=== PATIENT | female | born 1985 | race African-American/Black ===

== ENCOUNTER 2016-09-09 17:09 | Inpatient (IN) ==
[2016-09-09] MEDS ORDERED: ZOFRAN IV PRN (17:30)
[2016-09-09] MEDS ORDERED: REGLAN IV PRN (17:42)
[2016-09-09 21:27] LABS: MPV 9.9 FL (7.4-10.4)
[2016-09-09] MEDS ORDERED: NS 250 ML ONE (23:20)
[2016-09-09] MEDS: TYLENOL PO PRN (23:46)
[2016-09-10 02:15] LABS: MPV 10.5 FL (7.4-10.4)
[2016-09-10] MEDS: KEFZOL 1 GM/D5W 1 GM/50 ML IVPB IV SCH ×3 (02:31→16:04)
[2016-09-10 04:25] LABS: BASO% 0.2 % (0.0-0.8); EOS# 0.07 X1000 (0.0-0.7); EOS% 0.8 % (0.0-10.0); HEMATOCRIT 27.5 % (37.0-47.0); HEMOGLOBIN 9.3 g/dL (12.0-16.0); IMM GRAN# 0.02 X1000 (0.0-0.04); IMM GRAN% 0.2 % (0.0-0.5); LYMPH# 1.93 X1000 (1.2-3.4); LYMPH% 21.3 % (20.5-51.1); MANUAL DIFF NEEDED? YES; MCH 27.9 PG (27-31); MCHC 33.8 g/dL (33-37); MCV 82.6 FL (81-99); MONO# 0.51 X1000 (0.11-0.59); MONO% 5.6 % (1.7-9.3); NEUT% 71.9 % (42.2-75.2); RBC 3.33 XMIL (4.2-5.4)
[2016-09-10 04:27] LABS: PLT 30 X1000 (130-400)
[2016-09-10] MEDS ORDERED: D50W SYRINGE IV ONE (04:29)
[2016-09-10 05:11] LABS: EOS 4 % (1-10); LYMPHS 20 % (21-51); MONO 4 % (1-9)
[2016-09-10 05:33] LABS: LARGE PLATELETS OCCASIONAL
[2016-09-10 05:59] LABS: INR 1.06 (0.86-1.15); PROTIME 14.1 Seconds (12.1-15.5)
[2016-09-10 06:00] LABS: PTT PL 34.6 Seconds (22.6-43.9)
[2016-09-10 06:17] LABS: DIRECT BILIRUBIN 0.5 mg/dL (0.00-0.20); TOTAL BILIRUBIN 1.2 mg/dL (0.20-1.00)
[2016-09-10] MEDS: NS 1,000 ML IV SCH ×2 (06:31→16:04)
[2016-09-10 07:24] LABS: MPV 9.4 FL (7.4-10.4)
[2016-09-10] MEDS: FLINTSTONES COMPLETE PO SCH (09:27)
[2016-09-10] MEDS ORDERED: GAVISCON PO PRN (12:12)
--- NOTE | 2016-09-10 12:48 | PROGRESS NOTE ---
DATE: 09/10/2016 SUBJECTIVE: The patient reports feeling better today. She has been no abdominal pain now, and no nausea or vomiting this morning. She is tolerating a clear liquid diet. OBJECTIVE: Vital Signs: She is afebrile. Her vital signs were stable. She is noted to have systolic blood pressure as high as 149, but most recently 135/78. General: She is alert oriented x4. In no acute distress. Cardiovascular: Regular rate and rhythm. Respiratory: No work of breathing. Gastrointestinal: Soft. She is nontender in the right upper quadrant. LABORATORY: White blood cell count 9000, hemoglobin 9.3, hematocrit 27.5. Platelet count yesterday was as low was 24,000. After 2 units, it is up to 36,000. INR 1.1. PTT 34.6. Fibrinogen 402. Uric acid 4.8. Total bilirubin 1.2. Direct bilirubin 0.5. ASSESSMENT AND PLAN: This is a 30-year-old female with 18 weeks gestation who presented yesterday with right upper quadrant pain and tenderness, nausea, vomiting, mildly elevated liver function tests, and an ultrasound showing sludge in the gallbladder and a large gallstone near the gallbladder neck. She had a positive sonographic Farris sign. Subsequently, she was found to be thrombocytopenic and was admitted for further workup and treatment. She is on scheduled IV Ancef have for cholecystitis. A hematology workup has been started by me and I have talked to Dr. Olga Izquierdo for further assistance. In discussion with Dr. Dela Cruz, hemolysis, elevated liver enzyme levels, and low platelet levels syndrome or preeclampsia would seem to be out of the question, given the stage of her . At this point, she does not appear to have severe cholecystitis requiring emergent intervention. We will continue the antibiotics for now, until further clarity is determined on the thrombocytopenia. Dr. Redding will cover in my absence over the weekend. cc: Harish Cooper MD
[2016-09-10] MEDS ORDERED: IVIG DOSING ORDER MISC SCH (15:30)
[2016-09-10 15:43] LABS: CHLORIDE 101 mmol/L (98-107); POTASSIUM 3.8 mmol/L (3.5-5.1); SODIUM 136 mmol/L (136-145); TCO2 21 mmol/L (25-35)
[2016-09-10 15:44] LABS: AGAP 14; ALBUMIN 3.5 g/dL (3.5-5.0); ALKALINE PHOSPHATASE 164 U/L (32-104); BUN 5 mg/dL (8-22); COSMO 269; GOT 54 U/L (10-30); GPT 73 U/L (10-36); TOTAL PROTEIN 7.3 g/dL (6.3-8.3)
--- NOTE | 2016-09-10 16:04 | CONSULTATION ---
DATE OF CONSULTATION: 09/10/2016 REQUESTING PHYSICIAN: Dr. Harish Cooper. REASON FOR CONSULTATION: Thrombocytopenia. HISTORY OF PRESENT ILLNESS: Ms. Milan is a 30-year-old, woman who is 18 weeks with her 3rd child who was noted recently to have right upper quadrant abdominal pain thought to be related to her gallbladder and was scheduled for elective cholecystectomy on the date of admission. Preop lab showed a severe thrombocytopenia with a platelet count of 26,000 and she was admitted for further workup. She denies any antecedent fevers, chills, signs of infection, bleeding, easy bruising, diarrhea, or changes in the color of her eyes, skin or urine. She had 2 previous uneventful and has never been told that her platelets were low. She had a bit of a nosebleed this morning that has now stopped and was mild per her report. PAST MEDICAL HISTORY: Significant for diabetes, hypothyroidism. ALLERGIES: Phenergan. PAST SURGICAL HISTORY: x2. FAMILY MEDICAL HISTORY: Positive for hypertension in mom. MEDICATIONS: Reviewed per chart. Notable for metformin, Zofran and Synthroid. SOCIAL HISTORY: The patient has a significant other and an 8-year-old and a 4-year-old at home that she lives with. A history of tobacco use. No significant alcohol use. REVIEW OF SYSTEMS: Pertinent positives and negatives as per HPI. All other review of systems are negative. PHYSICAL EXAMINATION: General: This is a well-developed, well-nourished, woman lying in the hospital bed in no acute distress. Her significant other is at the bedside. Vital Signs: Temperature 98.2 degrees, pulse 74, respiratory rate 18, blood pressure 116/68, O2 saturation 100% on room air. Eyes: Sclerae anicteric. Cardiovascular: Regular rate and rhythm. Normal S1, S2. No murmurs, rubs, or gallops. Pulmonary: Lungs are clear auscultation bilaterally without wheezes, rales, or rhonchi. Gastrointestinal: Abdomen is soft, nontender, nondistended with normoactive bowel sounds. Extremities: No clubbing, cyanosis. Trace bilateral ankle edema. Neurologic: Alert and oriented x3. No focal deficits. LABORATORY DATA: On admission, platelet count 24,000, with MCV of 9.9. After transfusion platelet count 36,000, white count 9, hemoglobin 9.3. INR 1.06. Fibrinogen 402. PTT 34.6. Uric acid 4.8, total bilirubin 1.2, direct bilirubin 0.5. Abdominal ultrasound: Cholelithiasis. ASSESSMENT AND PLAN: 1. Thrombocytopenia. I suspect that she has ITP. I am awaiting her LDH. Her peripheral smear shows no schistocytes and a few large platelets. I will check a full liver function panel as well as her LDH. If those are within normal limits then I will treat her with IVIG for presumptive ITP. I have discussed her case with Dr. Cooper and Dr. Jhaveri. The patient understands and agrees to proceed. I would recommend no further transfusion unless active bleeding is present. 2. Anemia. I will check iron studies, B12 and folic acid, at this time. No evidence of active hemolysis. No evidence of TTP. 3. Cholelithiasis: We will defer cholecystectomy until her platelet count has improved to safe range. 4. Followup: I would anticipate that the IVIG will lead to an increased platelet count in the next 2-3 days. I will see her back in the office next week to review her platelet count and determine further course of therapy. Thank you for this consultation and the opportunity to participate in the care of this very pleasant patient. I will follow along with you and make further recommendations as indicated. cc: MD Harish Gtz MD
--- NOTE | 2016-09-10 17:45 | CONSULTATION ---
DATE OF CONSULTATION: 09/10/2016 REASON FOR CONSULTATION: Thrombocytopenia in , cholelithiasis. HISTORY OF PRESENT ILLNESS: This is a 30-year-old G5, P2-0-2-2 with intrauterine at 18+ 0 weeks, EDC 02/11/2017 who presents for inpatient management of thrombocytopenia. The patient was being worked up for the cholecystectomy after noticing 2-week history of right upper quadrant pain and preoperative blood work showed platelet count around 27,000 and patient was admitted yesterday for management. The patient notes no abnormal bleeding. She notes no bleeding gowns while brushing her teeth, no epistaxis. Patient notes no nausea or vomiting, chest pain, shortness of breath, change in bowel or bladder habits. Patient denies headaches, vision changes. OBSTETRICAL HISTORY: G1 full-term section complicated by gestational diabetes. G2 first trimester spontaneous . G3 full-term section. G4 22 week demise. G5 current complicated by type 2 diabetes as well as new found thrombocytopenia and cholelithiasis. HOSPITAL MEDICAL ASSISTANT HISTORY: Denies. PAST MEDICAL HISTORY: Significant for hypothyroidism and type 2 diabetes. PAST SURGICAL HISTORY: Significant for section x2. MEDICATIONS: Metformin 500 mg p.o. b.i.d., Synthroid 50 mcg daily. ALLERGIES: Phenergan. SOCIAL: Patient smokes 6-7 cigarettes per day. Denies alcohol or illicit drug use. REVIEW OF SYSTEMS: Otherwise negative. PHYSICAL EXAMINATION: General: Well-developed, well-nourished female, no acute distress. HEENT: Pupils equally round, react to light. Extraocular muscle intact. Chest: Clear to auscultation bilaterally. CV: Regular rate and rhythm. No murmurs, rubs or gallops. Abdomen: Soft, slight tenderness to palpation right upper quadrant. No rebound or guarding. Extremities: No clubbing, cyanosis, or edema. Skin: No focal lesions. Neuro: No focal deficits, +2 DTRs. ASSESSMENT AND PLAN.: 1. Intrauterine 18 + 0 weeks. 2. Cholelithiasis. 3. Thrombocytopenia (suspect immune thrombocytopenia). 4. Type 2 diabetes. PLAN: Although LDH and LFTs are elevated I do not suspect HELLP syndrome given gestational age as well as a lack of preeclampsia sequelae. Wound recommend IVIG as initial therapy in anticipation of surgery with a goal platelet count of at least 50 prior to operating. If for some reason surgery is canceled can expectantly manage with close outpatient follow up until platelets fall below 10. cc: MD Harish Kwong MD
[2016-09-10] MEDS: FLEBOGAMMA DIF 5% IV SCH (18:05)
[2016-09-10] MEDS: SYNTHROID PO SCH (20:43)
[2016-09-10] MEDS: TYLENOL PO PRN (20:51)
[2016-09-11] MEDS: TYLENOL PO PRN ×2 (03:21→13:29)
[2016-09-11] MEDS: KEFZOL 1 GM/D5W 1 GM/50 ML IVPB IV SCH ×4 (04:44→21:44)
[2016-09-11 06:08] LABS: MANUAL DIFF NEEDED? NO
[2016-09-11 07:42] LABS: BASO% 0.3 % (0.0-0.8); EOS# 0.13 X1000 (0.0-0.7); EOS% 1.6 % (0.0-10.0); HEMATOCRIT 25.7 % (37.0-47.0); HEMOGLOBIN 8.6 g/dL (12.0-16.0); IMM GRAN# 0.07 X1000 (0.0-0.04); IMM GRAN% 0.9 % (0.0-0.5); LYMPH# 1.52 X1000 (1.2-3.4); LYMPH% 19.1 % (20.5-51.1); MCH 27.8 PG (27-31); MCHC 33.5 g/dL (33-37); MCV 83.2 FL (81-99); MONO# 0.85 X1000 (0.11-0.59); MONO% 10.7 % (1.7-9.3); NEUT% 67.4 % (42.2-75.2); RBC 3.09 XMIL (4.2-5.4)
[2016-09-11 07:43] LABS: PLT 27 X1000 (130-400)
[2016-09-11 08:15] LABS: UR CREATININE 56.3 mg/dL (11-20); UR CREATININE TOTAL 2843.2 mg/24 (600-1600); UR PROTEIN 35.2 mg/dL
[2016-09-11] MEDS: FLINTSTONES COMPLETE PO SCH (08:20)
[2016-09-11 08:51] LABS: FERRITIN 1400 ng/mL (13-150)
--- NOTE | 2016-09-11 12:23 | PROGRESS NOTE ---
DATE: 09/11/2016 SUBJECTIVE: Feels okay. Occasional abdominal pain. She has got IVIG but her platelets are down to 27,000 this morning. White count 7, hematocrit is 25. Total bilirubin was 1 yesterday with. She has been followed by Dr. Izquierdo and Dr. Jhaveri with [employer]. Feels this is not -related but most likely ITP and Dr. Izquierdo is managing the therapy for this. We will continue to monitor and when her platelets improve we will plan for possible cholecystectomy at that time. PHYSICAL EXAM: Vital signs: Temperature is 98.2 degrees, pulse 67, blood pressure 127/77, oxygen saturation 100%. General: She is alert, no acute distress. Abdomen: Soft, nontender, nondistended. No scleral icterus. No jaundice. Cardiovascular: Normal rate, regular rhythm. Pulmonary: No increased work of breathing. We will continue to monitor for now and follow her platelets. Dr. Cooper plans for possible cholecystectomy this week as she clinically improves. cc: MD Harish Conner MD
[2016-09-11] MEDS: NS 1,000 ML IV SCH (12:52)
[2016-09-11] MEDS: FLEBOGAMMA DIF 5% IV SCH (17:53)
[2016-09-11] MEDS: SYNTHROID PO SCH (20:31)
[2016-09-12] MEDS: KEFZOL 1 GM/D5W 1 GM/50 ML IVPB IV SCH ×3 (04:07→21:21)
[2016-09-12 06:29] LABS: BASO% 0.4 % (0.0-0.8); EOS# 0.08 X1000 (0.0-0.7); HEMATOCRIT 24.6 % (37.0-47.0); HEMOGLOBIN 8.4 g/dL (12.0-16.0); IMM GRAN# 0.05 X1000 (0.0-0.04); IMM GRAN% 0.6 % (0.0-0.5); LYMPH# 1.69 X1000 (1.2-3.4); LYMPH% 20.8 % (20.5-51.1); MANUAL DIFF NEEDED? YES; MCH 28.5 PG (27-31); MCHC 34.1 g/dL (33-37); MCV 83.4 FL (81-99); MONO# 0.93 X1000 (0.11-0.59); MONO% 11.5 % (1.7-9.3); NEUT% 65.7 % (42.2-75.2); RBC 2.95 XMIL (4.2-5.4)
[2016-09-12 06:31] LABS: LYMPHS 22 % (21-51); MONO 8 % (1-9); PLT 15 X1000 (130-400)
[2016-09-12] MEDS: NS 1,000 ML IV SCH ×3 (07:08→18:37)
[2016-09-12] MEDS: FLINTSTONES COMPLETE PO SCH (09:19)
[2016-09-12] MEDS ORDERED: DECADRON PO ONE (16:05)
--- NOTE | 2016-09-12 16:19 | PROGRESS NOTE ---
DATE: 09/12/2016 SUBJECTIVE: No real abdominal pain. No nausea. She is tolerating a diet. Normal bowel function. She does have some bruising, but no bleeding, no epistaxis. OBJECTIVE: Vital signs: No fevers. Pulse is 54, blood pressure 155/91, oxygen saturation 100% on room air. General: She is alert, there is no scleral icterus. Cardiovascular: Normal rate, regular rhythm. She is , but I do not see any bruising other than at the previous IV site. Abdomen: Soft, nontender, nondistended. LABORATORY: I reviewed her labs. She remains anemic and thrombocytopenic, but stable hematocrit. Her platelets are down to 15 this morning. Glucose is 68. LDH is 721. 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 From a gallbladder standpoint, her pain is resolved and she is tolerating a diet. I think this is on the back burner as far as her other issues. From a idiopathic thrombocytopenia standpoint, her platelets continue to fall despite IVIG and platelet transfusions. I have spoken with Dr. Izquierdo, she thinks there could be a lag of 4-5 days before we see improvement in her platelets. She is not actively bleeding, but given the low platelet count, we will continue to follow this. Hold on transfusion at this time, but I suspect if she dips below 10, we will need to transfuse. Heart tones are normal and we are following this, ICU CLERK is following, Dr. Izquierdo is following. Keep her inpatient given the degree of her thrombocytopenia and the likelihood of bleeding, but will hold off on platelet transfusion at this point pending results from her IVIG. cc: MD Harish Conner MD
[2016-09-12] MEDS ORDERED: MISC. PHARMACY COMMUNICATION SCH (17:15)
--- NOTE | 2016-09-12 17:42 | PROGRESS NOTE ---
DATE: 09/12/2016 CHIEF COMPLAINT: Want to go home. HPI: Ms Milan has had some problems with low blood sugars and mildly high blood pressures overnight but overall feels well. She denies any bleeding. Vital signs are reviewed. She is afebrile and overall vital signs are stable with a systolic blood pressure max of 167. OBJECTIVE: General: This is a well-developed, well-nourished woman in no acute distress. Eyes: Sclerae anicteric. Cardiovascular: Regular rate and rhythm. Normal S1, S2. No murmurs, rubs, or gallops. Pulmonary: Lungs clear to auscultation bilaterally without wheezes, rales, or rhonchi. GI: Abdomen is soft, nontender, intrauterine with palpable uterus noted. Extremities: No clubbing, cyanosis, or edema. Vital signs: Temperature 98.9 degrees, pulse 54, respiratory rate 18, blood pressure 155/91, O2 saturation 100% on room air. LABORATORY DATA: White count 8.12, hemoglobin 8.4, platelet count 15,000 with a normal differential. Glucose 68, iron 67, ferritin 1400, direct bilirubin 0.5, AST 54, ALT 73, alkaline phosphatase 164, LDH 563, total protein 7.3, albumin 3.5, B12 448, folate 14.4, total protein 24 hour urine 1778. ASSESSMENT/PLAN: 1. Thrombocytopenia: We discussed the differential diagnosis of thrombocytopenia which includes immune thrombocytopenic purpura, thrombotic thrombocytopenic purpura, HELLP syndrome, gestational thrombocytopenia and disseminated intravascular coagulation. Her DIC panel is normal. She has no evidence of schistocytes or hemolytic anemia on labs or peripheral smear. I will review another peripheral smear at this time as well given her rising LDH. 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 She has been treated with 2 days of IVIG at 1 g/kg daily. We would expect response in her platelet count in the next few days. I will also give her a dose of steroids today given her worsening thrombocytopenia. 2. Cholelithiasis/cholecystitis: Gallbladder resection scheduled for when the patient is stable from a platelet standpoint. 3. Hypertension: Management per obstetrics. Continue to monitor. 4. Intrauterine at 18 weeks. Monitoring for obstetrics. Continue to monitor. cc: MD Harish Gtz MD
[2016-09-12] MEDS: SYNTHROID PO SCH (21:21)
[2016-09-13] MEDS: KEFZOL 1 GM/D5W 1 GM/50 ML IVPB IV SCH ×2 (04:06→14:10)
[2016-09-13 07:23] LABS: BASO% 0.2 % (0.0-0.8); EOS# 0.01 X1000 (0.0-0.7); EOS% 0.1 % (0.0-10.0); HEMATOCRIT 24.2 % (37.0-47.0); IMM GRAN# 0.08 X1000 (0.0-0.04); LYMPH# 1.81 X1000 (1.2-3.4); LYMPH% 21.7 % (20.5-51.1); MANUAL DIFF NEEDED? YES; MCH 27.7 PG (27-31); MCHC 33.1 g/dL (33-37); MCV 83.7 FL (81-99); MONO# 0.29 X1000 (0.11-0.59); MONO% 3.5 % (1.7-9.3); NEUT% 73.5 % (42.2-75.2); RBC 2.89 XMIL (4.2-5.4)
[2016-09-13 07:26] LABS: INR 1.03 (0.86-1.15); PROTIME 13.8 Seconds (12.1-15.5)
[2016-09-13 07:27] LABS: PTT PL 32.9 Seconds (22.6-43.9)
[2016-09-13 07:36] LABS: AGAP 9; ALBUMIN 2.6 g/dL (3.5-5.0); ALKALINE PHOSPHATASE 143 U/L (32-104); BUN 9 mg/dL (8-22); CALCIUM 8.7 mg/dL (8.8-10.2); CHLORIDE 102 mmol/L (98-107); COSMO 261; GOT 63 U/L (10-30); GPT 56 U/L (10-36); SODIUM 129 mmol/L (136-145); TCO2 18 mmol/L (25-35); TOTAL PROTEIN 8.9 g/dL (6.3-8.3)
[2016-09-13] MEDS: NS 1,000 ML IV SCH (07:38)
[2016-09-13] MEDS: FLINTSTONES COMPLETE PO SCH (09:32)
[2016-09-13 09:51] LABS: LYMPHS 17 % (21-51); MONO 1 % (1-9); PLT 11 X1000 (130-400)
[2016-09-13 09:52] LABS: BASO 1 % (0-1); NRBC 4 % (0-0)
--- NOTE | 2016-09-13 13:22 | PROGRESS NOTE ---
DATE: 09/13/2016 SUBJECTIVE: The patient has been anxious to go home and somewhat anxious also with her low platelet count. Otherwise, she does not feel sick. No abdominal pain, nausea or fever. OBJECTIVE: Vital Signs: She is afebrile. Pulse is in the 40s to 50s. Blood pressure systolic 140s to 211 over 80s to 123. General: She is alert and oriented x4. No acute distress. CV: Regular rate and rhythm. Respiratory: No work of breathing. Gastrointestinal: Soft, nontender. LABORATORY: White blood cell count 8000. Hemoglobin 8, hematocrit 24, platelet count 11,000. Sodium 129, potassium 4.0, chloride 102, CO2 18, BUN 9, creatinine 0.7. LDH is pending today. AST 63, ALT 56, alkaline phosphatase 143. ASSESSMENT AND PLAN: 1. A 30-year-old female with thrombocytopenia of unclear etiology. 2. Also, gallstones, possible cholecystitis. 3. She is 18 weeks . She is currently receiving IVIG and steroids. I am going to give her another unit of platelets today given her recent drop. She will need to remain hospitalized until her platelet count significantly improves. cc: Harish Cooper MD
[2016-09-13 14:57] LABS: LDH 933 U/L (135-214)
[2016-09-13] MEDS ORDERED: DECADRON PO SCH (16:15)
--- NOTE | 2016-09-13 17:10 | Diag Imaging Result Document ---
PROCEDURE NAME: US OBS COMPLETE > 14 WKS - 09/13/2016 OBSTETRICAL ULTRASOUND GREATER THAN 14 WEEKS: FINDINGS: There is a single intrauterine in breech presentation. Estimated gestational age based on parameters is 15 weeks 5 days +/-8 days. There is no cardiac activity detected. There is no movement observed. These findings are compatible with demise. The placenta is anteriorly located. There is no placental abnormality apparent. Amniotic fluid volume appears mildly decreased. IMPRESSION: Intrauterine of 15 weeks 5 days +/- 8 days, in breech presentation. There is no cardiac activity detected. There is no movement observed. These findings are compatible with demise. Results discussed in person with Dr. Silverio Perry at 4:43 p.m. on 09/13/2016. [facility] HOSPITALAllyssa
[2016-09-13 18:26] VITALS: BP 186/88
[2016-09-13 19:30] LABS: BASO% 0.4 % (0.0-0.8); EOS# 0.01 X1000 (0.0-0.7); EOS% 0.1 % (0.0-10.0); HEMATOCRIT 21.5 % (37.0-47.0); HEMOGLOBIN 7.2 g/dL (12.0-16.0); IMM GRAN% 1.2 % (0.0-0.5); LYMPH# 2.64 X1000 (1.2-3.4); LYMPH% 15.7 % (20.5-51.1); LYMPHS 17 % (21-51); MANUAL DIFF NEEDED? YES; MCH 28.2 PG (27-31); MCHC 33.5 g/dL (33-37); MCV 84.3 FL (81-99); MONO 8 % (1-9); MONO# 1.56 X1000 (0.11-0.59); MONO% 9.3 % (1.7-9.3); MPV 9.1 FL (7.4-10.4); NEUT% 73.3 % (42.2-75.2); PLT 61 X1000 (130-400); RBC 2.55 XMIL (4.2-5.4)
[2016-09-13 19:31] LABS: NRBC 5 % (0-0)
[2016-09-13 19:36] LABS: ALBUMIN 2.8 g/dL (3.5-5.0); ALKALINE PHOSPHATASE 141 U/L (32-104); DIRECT BILIRUBIN < 0.20 mg/dL (0.00-0.20); GOT 83 U/L (10-30); GPT 65 U/L (10-36); TOTAL PROTEIN 8.6 g/dL (6.3-8.3)
[2016-09-13] MEDS ORDERED: VALIUM PO SCH (21:00)
--- NOTE | 2016-09-14 08:41 | DISCHARGE SUMMARY ---
ADMISSION DATE: 09/09/2016 DISCHARGE DATE: 09/13/2016 SUMMARY: heart tones could not be heard, so we did an ultrasound. The ultrasound is showing a demise. The infant is in a breech presentation. There is no cardiac activity. There is no movement. The placenta is anteriorly located. There is no apparent placental abnormalities noted. Amniotic fluid volume appears decreased. I have discussed her care with Dr. Cruz at [facility]. Dr. Cruz is in Maternal- Medicine. He is recommending transfer. We are ordering some baseline labs per his instructions and also giving her 1 more unit of platelets. I have had a long discussion with the patient and her family members and they understand the need for transfer and they do accept the transfer UA. cc: MD Harish Villanueva MD
== END 2016-09-13 19:23 | disposition short-term general hospital (02) ==
LOC: OBSVTOIN 17:09 → INTOOBSV 17:09 → P.DIRADM 17:09 → P.MEDSURG 22:22
PROVIDERS: ADMIT Surgery; ATTEND Surgery